=== PATIENT | female | born 1955 | race Caucasian/White ===

== ENCOUNTER 2018-08-09 06:45 | Inpatient (IN) ==
[2018-08-09] MEDS ORDERED: ASPIRIN PO ONE (07:03)
[2018-08-09] MEDS ORDERED: CARDIZEM IV ONE (07:12)
--- NOTE | 2018-08-09 07:33 | PROVIDER DOCUMENTATION ---
HPI-Chest Pain - General Chief Complaint: Epigastric Pain Stated Complaint: CHEST BURNING / PRESSURE / HEART RACING Time Seen by Provider: 08/09/18 07:12 Source: patient Allergies/Adverse Reactions: Patient Allergies Allergy/AdvReac Type Severity Reaction Status Date / Time codeine AdvReac Mild VOMITING Verified 04/11/18 12:08 aspirin AdvReac NAUSEA/VOMI Verified 04/11/18 12:08 TING latex AdvReac ITCHING Verified 04/11/18 12:08 Home Medications: Home Medication List Medication Instructions Recorded Confirmed Last Taken Type Alprazolam [Xanax] 0.5 - 1 mg PO PRN PRN 07/21/13 04/11/18 04/11/18 11:30 History 0.5mg FOSINOpril [Monopril] 20 mg PO DAILY 08/20/17 04/11/18 04/07/18 History Hydrocodone/Acetaminophen [[place] 1 ea PO Q6HR PRN #10 tab 03/30/18 04/11/18 Rx 7.5-325 Tablet] Acyclovir [Zovirax] 800 mg PO PRN PRN 04/10/18 04/11/18 04/04/18 History Famotidine [Pepcid] 40 mg PO HS PRN 04/10/18 04/11/18 04/10/18 History Omeprazole 20 mg PO DAILY 04/11/18 04/11/18 04/07/18 History Hydrocodone/APAP 10 mg/325 mg 1 each PO Q4H PRN PRN tablet 04/13/18 Unknown Rx [[place]-10] Cetirizine [Zyrtec] 10 mg PO DAILY #20 tab 07/15/18 Unknown Rx D-Methorphan/P-Epd/Bpm [Bromfed Dm 5 ml PO Q4H PRN #120 ml 07/15/18 Unknown Rx Liquid] Prednisone 20 mg PO DIRECTED #18 tab 07/15/18 Unknown Rx - History of Present Illness-CP Location: reports: substernal, epigastric Chest Pain Radiation: reports: jaw Quality of Pain: reports: burning, indigestion Severity in ED: moderate Onset/Duration: abrupt, this morning Timing: still present Context/Activities at Onset: reports: none Modifying Factors: improves with: nothing Associated Symptoms: reports: denies symptoms Prior Chest Pain/Cardiac Workup: reports: no prior chest pain, no prior cardiac workup, non-cardiac Similar Symptoms Previously?: No Recently Seen Here or By Another Healthcare Provider: No Review of Systems - Adult - REVIEW OF SYSTEMS - ADULT Constitutional: reports: see HPI. denies: fever Eyes: reports: no symptoms reported Ears, Nose, Mouth & Throat: reports: no symptoms reported Cardiovascular: reports: chest pain, irregular heart rate Respiratory: reports: cough Gastrointestinal: reports: no symptoms reported Genitourinary: reports: no symptoms reported Musculoskeletal: reports: no symptoms reported Integumentary: reports: no symptoms reported Neurological: reports: no symptoms reported Psychiatric: reports: no symptoms reported Endocrine: reports: no symptoms reported Hematologic/Lymphatic: reports: no symptoms reported Allergic/Immunologic: reports: no symptoms reported Past History - Adult - PAST MEDICAL HISTORY-ADULT Review of Records: reports: Nursing Assessment Review, Medications Reviewed Major Childhood Illnesses: reports: denies history Cardiovascular: reports: HTN Respiratory: reports: denies history Gastrointestinal: reports: cholelithiasis, GERD, hepatitis (c) Obstetrical/Gynecological: reports: denies history Genitourinary: reports: denies history Musculoskeletal: reports: chronic pain Neurological: reports: denies history Endocrine/Immune: reports: denies history Other Conditions: reports: denies history Additional History: hep c, tubal ligation - PRIOR SURGERIES/PROCEDURES Surgical/Procedure History: reports: BTL, tonsillectomy, back/neck - IMMUNIZATION STATUS Childhood Immunizations: See Nurse Assessment Flu Vaccine: See Nurse Assessment - FAMILY HISTORY Family History: reviewed, not pertinent Physical Exam-General - PHYSICAL EXAM-ADULT Initial Vital Signs Reviewed: Yes - CONSTITUTIONAL General Appearance: alert - EYES Eyes: PERRL/EOMI - HEAD, EARS, NOSE, MOUTH & THROAT HENMT: normocephalic/atraumatic - NECK Neck: non-tender - RESPIRATORY Respiratory: chest non-tender - CARDIOVASCULAR Cardiovascular: tachycardia, irregularly irregular - GASTROINTESTINAL (ABDOMEN) Abdominal Exam: normal bowel sounds, non tender - LYMPHATIC Lymphatic: no adenopathy - MUSCULOSKELETAL Back Exam: no CVA tenderness, no vertebral tenderness Extremity: no pedal edema, no calf tenderness - SKIN Integumentary: normal color, warm/dry - NEUROLOGIC Neurologic: medical microbiologist II-XII nml as tested, grossly normal, no motor/sensory deficits - PSYCHIATRIC Psych/Mental Status: normal mood/affect Progress - PLAN OF CARE/RESULTS Progress/Plan/Lab Results: Vital Signs - 8 hr 08/09/18 06:56 Temperature 98.4 F Pulse Rate 122 H Respiratory Rate 19 Blood Pressure 151/112 O2 Sat by Pulse Oximetry 99 Laboratory Results - last 24 hr 08/09/18 08/09/18 08/09/18 07:28 07:28 07:28 WBC RBC Hgb Hct MCV MCH MCHC RDW Std Deviation Plt Count MPV Immature Gran % (Auto) Neut % (Auto) Lymph % (Auto) [place] % (Auto) Eos % (Auto) Baso % (Auto) Immature Gran # (Auto) Neut # (Auto) Lymph # (Auto) [place] # (Auto) Eos # (Auto) Baso # (Auto) PT INR PTT (Actin FS) Sodium 141 Potassium 3.6 Chloride 106 Carbon Dioxide 23 L Anion Gap 12 BUN 14 Creatinine 0.4 L Estimated GFR/1.73 m2 > 60 BUN/Creatinine Ratio 35 Glucose 146 H Calculated Osmolality 284 Calcium 9.8 Total Bilirubin 0.50 AST 45 H ALT 65 H Alkaline Phosphatase 136 H Creatine Kinase 55 Troponin T < 0.010 Oid-B-Gflxnpfvdbk Pept 164 Total Protein 7.1 Albumin 3.8 Globulin 3.0 Albumin/Globulin Ratio 1.0 08/09/18 08/09/18 07:28 07:28 WBC 6.77 RBC 4.75 Hgb 13.6 Hct 40.3 MCV 84.8 MCH 28.6 MCHC 33.7 RDW Std Deviation 13.8 Plt Count 118 L MPV 10.7 H Immature Gran % (Auto) 0.1 Neut % (Auto) 58.7 Lymph % (Auto) 29.2 [place] % (Auto) 11.2 H Eos % (Auto) 0.7 Baso % (Auto) 0.1 Immature Gran # (Auto) 0.01 Neut # (Auto) 3.96 Lymph # (Auto) 1.98 [place] # (Auto) 0.76 H Eos # (Auto) 0.05 Baso # (Auto) 0.01 PT 13.0 INR 0.94 PTT (Actin FS) 25.9 Sodium Potassium Chloride Carbon Dioxide Anion Gap BUN Creatinine Estimated GFR/1.73 m2 BUN/Creatinine Ratio Glucose Calculated Osmolality Calcium Total Bilirubin AST ALT Alkaline Phosphatase Creatine Kinase Troponin T Hiv-Z-Fazohzahfph Pept Total Protein Albumin Globulin Albumin/Globulin Ratio Orders Category Date Time Status Cardiac Monitoring DIRECTED Care 08/09/18 07:04 Active Oxygen Therapy- ED Nursing DIRECTED Care 08/09/18 07:04 Active Saline Loc NOW Care 08/09/18 07:04 Active CHEST-2 VIEWS [RAD] Stat Exams 08/09/18 07:04 Completed CBC WITH ELECTRONIC DIFF [HEME] Stat Lab 08/09/18 07:28 Completed CK PROFILE [SP CHEM] Stat Lab 08/09/18 07:28 Completed COMPREHENSIVE METABOLIC PANEL [CHEM] Stat Lab 08/09/18 07:28 Completed PRO B-NATRIURETIC PEPTIDE Stat Lab 08/09/18 07:28 Completed PROTIME WITH INR [COAG] Stat Lab 08/09/18 07:28 Completed PTT [COAG] Stat Lab 08/09/18 07:28 Completed TROPONIN T Stat Lab 08/09/18 07:28 Completed Aspirin Med 08/09/18 07:03 Discontinued 325 mg PO NOW ONE Diltiazem [Cardizem] Med 08/09/18 07:12 Discontinued 20 mg IV NOW ONE Metoprolol [Lopressor] 10 mg Med 08/09/18 08:55 Active 0.9% Sodium Chloride Inj [Ns] 50 ml IV NOW CP/SOB/Palp >45 yrs of Age Stat Oth 08/09/18 07:03 Ordered EKG [EKG] Stat Ther 08/09/18 07:04 Draft Result Diagrams: 08/09/18 07:28 08/09/18 07:28 - CONSULTS/PCP/HOSPITALIST Notification #1 *Consult/PCP/Hospitalist*: juno Time Discussed: 09:02 Reason/Comments: he was out of town, hospitalist will admit his patient Departure - Departure Date of Disposition Decision: 08/09/18 Time of Disposition Decision: 09:02 DIAGNOSIS: A-fib, Tachycardia Disposition: ADMITTED INPATIENT 09 Certified Medical Emergency: Emergent Condition: Good Referrals and Follow-Ups: Edd pSence MD [Primary Care Provider] - - Critical Care Note This patient required my direct & personal management of CC.: No Attestation - Physician/ MARY Attestation Patient care was provided by Advanced Practice Provider:: No The physician spent face to face time with patient:: Yes Advanced Practice Provider documentation review:: Supervising physician onsite and consulted in the evaluation and care of this patient. The physician did have a face to face encounter with the patient.
--- NOTE | 2018-08-09 07:37 | EKG Report ---
Test Performed on : 08/09/2018 07:06:55 AM Test Reason : cp Blood Pressure : / mmHG Vent. Rate : 117 BPM Atrial Rate : 088 BPM P-R Int : 000 ms QRS Dur : 074 ms QT Int : 326 ms P-R-T Axes : 000 029 095 degrees QTc Int : 454 ms Atrial fibrillation. with rapid ventricular response. Septal infarct , age undetermined Abnormal ECG When compared with ECG of 10-APR-2018 13:46, Atrial fibrillation. has replaced Sinus rhythm. Septal infarct is now present Nonspecific T wave abnormality now evident in Lateral leads Unconfirmed Result
[2018-08-09 07:45] LABS: BASO# 0.01 X1000 (0.0-0.2); BASO% 0.1 % (0.0-0.8); EOS# 0.05 X1000 (0.0-0.7); EOS% 0.7 % (0.0-10.0); HEMATOCRIT 40.3 % (37.0-47.0); HEMOGLOBIN 13.6 g/dL (12.0-16.0); IMM GRAN# 0.01 X1000 (0.0-0.04); IMM GRAN% 0.1 % (0.0-0.5); LYMPH# 1.98 X1000 (1.2-3.4); LYMPH% 29.2 % (20.5-51.1); MCH 28.6 PG (27-31); MCHC 33.7 g/dL (33-37); MCV 84.8 FL (81-99); MONO# 0.76 X1000 (0.11-0.59); MONO% 11.2 % (1.7-9.3); MPV 10.7 FL (7.4-10.4); NEUT# 3.96 X1000 (1.4-6.5); NEUT% 58.7 % (42.2-75.2); PLT 118 X1000 (130-400); RBC 4.75 XMIL (4.2-5.4); RDW 13.8 % (11.5-14.5); WBC 6.77 X1000 (4.8-10.8)
[2018-08-09 08:00] LABS: INR 0.94
[2018-08-09 08:01] LABS: PTT 25.9 Seconds (22.3-41.8)
--- NOTE | 2018-08-09 08:03 | Diag Imaging Result Doc PS360 ---
EXAM: CHEST-2 VIEWS HISTORY: heart racing TECHNIQUE: Chest two views COMPARISON: 03/17/2016 FINDINGS: The lungs are well expanded. The heart is not enlarged. The vessels are not distended. There are no infiltrates. No pleural effusions. There is a granuloma in the mid right lung. IMPRESSION: No acute abnormality. Electronically signed by Chucho Quarles 08/09/2018 8:01 AM
[2018-08-09 08:08] LABS: AGAP 12; ALBUMIN 3.8 g/dL (3.5-5.0); ALKALINE PHOSPHATASE 136 U/L (32-104); BUN 14 mg/dL (8-22); CALCIUM 9.8 mg/dL (8.8-10.2); CHLORIDE 106 mmol/L (98-107); CK PROFILE 55 U/L (24-173); COSMO 284; CREATININE 0.4 mg/dL (0.5-0.9); ESTIMATED GFR > 60; GLUCOSE 146 mg/dL (70-104); GOT 45 U/L (10-30); GPT 65 U/L (10-36); POTASSIUM 3.6 mmol/L (3.5-5.1); SODIUM 141 mmol/L (136-145); TCO2 23 mmol/L (25-35); TOTAL PROTEIN 7.1 g/dL (6.3-8.3)
[2018-08-09] MEDS ORDERED: LOPRESSOR 10 MG in NS 50 ML IV ONE (08:55)
--- NOTE | 2018-08-09 09:15 | ED EKG INTERP ---
This chart was entered by Marli Patton Scribe, acting as scribe for Yessica Naranjo MD. EKG Interpretation - EKG Time of EKG reading by physician:: 07:06 EKG Read and Signed by:: Yessica Naranjo EKG Interpretation (*Must complete 3 of following elements*): Abnormal Rate: 117 Rhythm: atrial fibrillation with rvr [place]: normal QRS: normal VA Interval: normal ST Wave: normal Comments: septal infarct, age undetermned Attestation - Physician/ MARY Attestation Patient care was provided by Advanced Practice Provider:: No The physician spent face to face time with patient:: Yes Advanced Practice Provider documentation review:: Supervising physician onsite and consulted in the evaluation and care of this patient. The physician did have a face to face encounter with the patient. This chart was documented by the indicated scribe, (Marli Patton Scribe) and accurately reflects the services I performed and decisions made by me, Yessica Naranjo MD, as attested by the provider's signature.
[2018-08-09] MEDS ORDERED: NS 50 ML ONE (09:59)
[2018-08-09] MEDS ORDERED: ZOFRAN IV PRN (12:25)
--- NOTE | 2018-08-09 13:03 | HISTORY AND PHYSICAL ---
CHIEF COMPLAINT: Shortness of breath, chest tightness, tachycardia. HISTORY OF PRESENT ILLNESS: This is a 62-year-old female with a history of asthma, hepatitis C, and hypertension. She presented to the emergency room complaining of chest tightness with a burning-type feeling and her heart racing. She states this came on as a sudden onset. She has never felt this before. She did state that she was very weak during this time and that she could not stand up. She thought she was going to pass out. She does state that she has had an upper respiratory infection for about 5 weeks and in fact, she was in the emergency room on July 15 and at that time she was diagnosed with an upper respiratory infection. She was discharged on prednisone taper, Zyrtec, Bromfed DM. She states that symptoms have persisted, although they did get somewhat better. But during these last 3 weeks she has had episodes of feeling like she was choking and chest fullness, although she did not notice her heart rate up at that time. PAST MEDICAL HISTORY: 1. Hepatitis C with no treatment. 2. Cirrhosis of the liver. 3. History of elevated liver function tests. 4. Hypertension. 5. Asthma. PAST SURGICAL HISTORY: Laparoscopic cholecystectomy in 2018 with subsequent ERCP. SOCIAL HISTORY: She denies alcohol, tobacco, or illicit drug use. ALLERGIES: Codeine which causes vomiting. Aspirin causes nausea and vomiting. Latex, itching. HOME MEDICATIONS: A list will be obtained by the nursing staff and once reviewed we will restart as is appropriate. REVIEW OF SYSTEMS: Discussed with patient with pertinent positives stated in the HPI. She denied any syncope or dizziness, a productive cough, any prior chest pain or palpitations, any nausea, vomiting, diarrhea, constipation, black or bloody vomitus or stool, hematuria, dysuria, frequency, urgency. PHYSICAL EXAMINATION: GENERAL: This is a 62-year-old female who is lying flat in the bed in the room, in no distress. VITAL SIGNS: Blood pressure is 110/81 with a heart rate of ranging from 80-101, respirations are 19. EYES: Pupils are equal, round, react to light. EOMs are intact. Sclerae are anicteric. HENT: Head is normocephalic, atraumatic. Mucous membranes are moist. NECK: Supple with trachea midline. CARDIAC: Irregularly irregular rate and rhythm. She has no lower extremity edema with peripheral pulses palpable x4 extremities. PULMONARY: Breath sounds are clear, but diminished at the bases. She has no increased work of breathing noted. Chest rises and falls symmetrically with respiration. GASTROINTESTINAL: Abdomen is soft, nontender, nondistended. Bowel sounds in all 4 quadrants. GENITOURINARY: She has no CVAT nor suprapubic tenderness. NEUROLOGIC: She is alert and oriented x3. SKIN: Warm and dry. LABS: WBC is 6.7, with a hemoglobin of 13.6, hematocrit 40.3, platelets of 118,000. INR 0.94. Sodium is 141, potassium 3.6, creatinine 0.4, with a BUN of 14, glucose is 146. AST is 45, ALT 65, and alkaline phosphatase is 136. Chest x-ray reveals no acute abnormality. There are no infiltrates. No pleural infusion. There is a granuloma in the mid right lung. Lungs are well expanded. Heart is not enlarged. Vessels are not distended. ASSESSMENT AND PLAN: 1. New onset atrial fibrillation with rapid ventricular response. The patient will be admitted and she will be placed on telemetry. At present rate is controlled. If she has another episode of RVR, she will be moved to ICU and placed on a Cardizem drip. We will check a TSH and get an echocardiogram. We will start Lovenox 1 mg/kg as the patient's description states that she may have actually been in this for the last 2 to 3 weeks. 2. Shortness of breath. [facility] and diagnosed subjectively with pneumonia. Lungs are clear at this time. We will start antibiotic. We will give supplemental oxygen. 3. Recent diagnosis of pneumonia. She was diagnosed in the last 2 to 3 days. Will get blood cultures and start antibiotic coverage of Rocephin and Zithromax. 4. History of asthma. We will get peak flows daily. She is on no medications for this. 5. Hypertension. We will identify her home medications and continue these, although she does state that she has had a persistent cough for the last 6 to 8 weeks. If she is on an Juma we will hold that and we will. 6. Persistent nonproductive cough. As stated above, we will hold her JUMA inhibitor. 7. History of hepatitis C without treatment. Aware. 8. History of cirrhosis with persistent elevated liver function tests. We are aware and the patient is followed by Dr. Pope. 9. For deep vein thrombosis prophylaxis, as stated above, we will use Lovenox and for gastrointestinal prophylaxis we will use omeprazole. Further treatments pending hospital course. Dictated by ZACH Vargas for Jem Giron MD This chart was documented by, ZACH Vargas and accurately reflects the services performed, treatment plan and medical decisions as attested by the providers signature Jem Giron MD. cc: ZACH Vargas MD
[2018-08-09] MEDS: ZITHROMAX PO SCH (14:33)
[2018-08-09] MEDS: ROCEPHIN 1 GM in NS 50 ML IV SCH (14:33)
[2018-08-09] MEDS: CARDIZEM PO SCH ×3 (14:34→21:13)
[2018-08-09] MEDS ORDERED: NORCO-5 PO ONE (15:06)
--- NOTE | 2018-08-09 15:47 | CARDIOLOGY CONSULTATION ---
DATE: 08/09/2018 INDICATION: Cardiology was consulted for atrial fibrillation HISTORY OF PRESENT ILLNESS: A 62-year-old lady with history of asthma, hepatitis C, history of hypertension. Has been having cough without any expectoration intermittently, was treated with antibiotics so this has been going on for 2 to 3 weeks. Before she came to the emergency room. She noticed some palpitations. She was here in June, had been diagnosed with upper respiratory tract infection and was discharged on prednisone taper Zyrtec and Bromfed. She does not complain of any dizziness or syncope. She complains of having cough and with cough she had some chest tightness as well. She has had hepatitis C, has cirrhosis of the liver and she also states that she has a mass in the stomach. The exact etiology she does not know and further investigation was recommended. PAST MEDICAL HISTORY: 1. Hepatitis C. 2. Cirrhosis liver. 3. Per patient, has a mass in her stomach, unknown etiology. Further workup recommended. 4. Laparoscopic cholecystectomy with subsequent ERCP in March 2019. 5. History of hypertension, asthma. ALLERGIES: She is allergic to codeine. Aspirin causes nausea and vomiting. Latex causes itching. She denies alcohol abuse. REVIEW OF SYSTEMS: Gastrointestinal: There is no nausea, vomiting or diarrhea. There is no hematemesis or melena. Central Nervous System: No focal weakness to suggest a CVA or TIA. Genitourinary: There is no dysuria or hematuria. PHYSICAL EXAMINATION: Vital Signs: Blood pressure was 110/80. Cardiovascular System: Normal jugular venous pressure. There is no thyromegaly. There is no carotid bruit. First and second heart sounds were heard. There was no S3 gallop. Respiratory: Normal air entry. There are no crepitations or rhonchi. Abdomen: Soft, nontender. There was no guarding or rigidity. Bowel sounds were heard. Central Nervous System: Alert, was moving all 4 extremities. Extremities: Examination of extremities revealed no pedal edema. DIAGNOSTICS: Electrocardiogram revealed atrial fibrillation. LABORATORY: Hemoglobin 13.6, hematocrit 34, platelet count off 118. Sodium 141, potassium 3.6, BUN 14 creatinine 0.4. Abnormal liver function test. Cardiac enzymes were negative. TSH was normal. CURRENT MEDICATIONS: Include: 1. Cardizem 30 mg q.6 hours. 2. Prilosec 40. 3. Zofran as needed. 4. Ceftriaxone. 5. Zithromax. ASSESSMENT AND PLAN: 1. Ms. Su Carbajal is a 62-year-old, lady who has history of cirrhosis, undergone laparoscopic cholecystectomy with ERCP, hepatitis C positive. Has had recurrent respiratory tract infection. Comes in with having increasing palpitations and feeling uneasy in the chest. She was noted to be in atrial fibrillation with this new onset. Currently, she is on p.o. Cardizem. As far as medications are concerned, would recommend changing her to once a day long-acting Cardizem from tomorrow. 2. We will get an echocardiogram to assess cardiac and valvular function. 3. As far as further treatment anticoagulation is concerned, she says that she is also noted to have a mass in her stomach in addition to the above GI issues and she will make a followup appointment to see Gastroenterology for further workup of the stomach mass. Given this and given the platelets being slightly lower, I have not put her on any anticoagulation therapy. Would recommend an aspirin currently at the present time. 4. Respiratory tract infection. Is probably what has triggered her atrial fibrillation. She has been started on ceftriaxone and Zithromax. I have not made any other changes. cc: Carmine Davis MD
--- NOTE | 2018-08-09 19:24 | ECHO REPORT ---
ORDER DATE: 08/09/2018 INDICATION: A 62-year-old female with atrial fibrillation and chest pain. M-MODE MEASUREMENTS: Left ventricle end diastole: 3.3. Left ventricle end systole: 1.8. Posterior wall: 1.0. Interventricular septum: 1.1. Left atrium: 3.2. Aortic root: 2.6. SUMMARY OF 2-DIMENSIONAL IMAGIN. Left ventricular function is normal. Ejection fraction estimated at 65% to 70%. The patient is in atrial fibrillation. 2. The mitral valve shows a very mild degree of regurgitation. 3. Pulsed wave Doppler of mitral inflow shows single filling wave. 4. The aortic valve has 3 cusps. They open normally. Color flow mapping unremarkable. 5. The pulmonic valve shows a mild degree of regurgitation. 6. The tricuspid valve shows a mild degree of regurgitation. 7. The left atrium appears to be mildly enlarged. 8. The inferior vena cava is not dilated. 9. There is no pericardial effusion. No masses, no thrombus. Clinical correlation recommended. cc: MD Sade Lemons CRNP
--- NOTE | 2018-08-09 20:30 | Diag Imaging Result Doc PS360 ---
CT ABD/PELVIS W/PO AND IV CON - 08/09/2018 INDICATION: gastric mass COMPARISON: 01/13/2018 FINDINGS: The lung bases are clear and the heart size is normal. The liver is severely atrophic with a nodular contour compatible with advanced cirrhosis. This is stable from prior. There are cholecystectomy clips. Normal spleen size. The pancreas, adrenals, and kidneys are normal. No visible gastric mass. No bowel obstruction or inflammation. Normal appendix. There are several fibroids in the uterus, there is also a new uterine mass on the left side. This measures about 5 cm. Urinary bladder and rectum are normal. Bones are intact. IMPRESSION: 1. New uterine mass most likely another fibroid. 2. Advanced cirrhosis. 3. No gastric mass. This exam was performed using automated exposure control, adjustment of mA or kV according to patient size, and/or use of iterative reconstruction technique Electronically signed by Maico Lutz 08/09/2018 8:27 PM
[2018-08-10] MEDS: CARDIZEM PO SCH ×4 (02:33→21:19)
[2018-08-10] MEDS: PRILOSEC PO SCH (06:21)
[2018-08-10 07:05] LABS: HEMATOCRIT 41.2 % (37.0-47.0); HEMOGLOBIN 13.5 g/dL (12.0-16.0); MCHC 32.8 g/dL (33-37); MCV 85.5 FL (81-99); MPV 10.7 FL (7.4-10.4); RBC 4.82 XMIL (4.2-5.4); RDW 14.4 % (11.5-14.5); WBC 5.45 X1000 (4.8-10.8)
[2018-08-10 07:20] LABS: AGAP 10; ALBUMIN 3.2 g/dL (3.5-5.0); ALKALINE PHOSPHATASE 103 U/L (32-104); BUN 15 mg/dL (8-22); CALCIUM 8.7 mg/dL (8.8-10.2); CHLORIDE 105 mmol/L (98-107); COSMO 281; CREATININE 0.4 mg/dL (0.5-0.9); ESTIMATED GFR > 60; GLUCOSE 114 mg/dL (70-104); GOT 48 U/L (10-30); GPT 57 U/L (10-36); POTASSIUM 3.7 mmol/L (3.5-5.1); SODIUM 140 mmol/L (136-145); TCO2 25 mmol/L (25-35); TOTAL PROTEIN 6.4 g/dL (6.3-8.3)
[2018-08-10] MEDS: ZITHROMAX PO SCH (10:36)
[2018-08-10] MEDS: ROCEPHIN 1 GM in NS 50 ML IV SCH (14:01)
--- NOTE | 2018-08-10 16:57 | PROGRESS NOTE ---
DATE: 08/10/2018 SUBJECTIVE: Patient reports no longer having sensation of palpitations or the sensation that her heart is racing. Denies any chest pain or fever. OBJECTIVE: Vital Signs: Temperature 97.7 degrees, heart rate 93, respiratory rate 18, blood pressure 114/79 and O2 saturation 99% on room air. General: This is a 62-year-old female lying in bed in no acute distress. Cardiovascular: S1, S2 heard. Irregularly irregular. Tachycardic. No murmurs, gallops, or rubs. Respiratory: Decreased breath sounds globally, but there is no wheezing or crackles noted. The patient is not using any accessory muscles or having work of breathing. Abdomen: Soft. Nontender to palpation. Bowel sounds present. No organomegaly. Extremities: No clubbing cyanosis, or edema. Peripheral pulses present in both legs. Neurological: Patient alert and oriented x3. Moves all 4 extremities. LABORATORY DATA: CBC is normal. BMP is completely normal with mild elevation of transaminases. Platelets are normal at 133. ASSESSMENT AND PLAN: 1. New onset atrial fibrillation with rapid ventricular response. Patient was admitted for this condition. She was started initially, it was documented atrial fibrillation with rapid ventricular rate, but when this patient was sent to the floor, heart rate was back to normal. The patient has been started on Cardizem 30 mg p.o. q.6 hours but the last doses have been held because apparently heart rate has not reached 61 as per nursing notes. That is why we have not started this patient on Cardizem long-acting. I think tomorrow we will be able to start Cardizem CD 120 mg p.o. daily. Regarding anticoagulation, there was a concern from Cardiology regarding a gastric mass so I proceeded to order a CT of abdomen and pelvis. We did not show any gastric mass, and showed only advanced cirrhosis that we were aware of. Also another fibroid in the ureters. Also, platelets are normal. I am not quite sure if that was truly low platelet count or was an artifact, but in any case the platelets are 133 today. I will leave the decision to anticoagulate this patient to Dr. Davis. Also, I will leave to him to decide to do a transesophageal echo with cardioversion considering that this patient is the first time that he had this episode of atrial fibrillation. We will continue to monitor this patient closely. 2. Right lower lobe pneumonia. Patient is receiving Zithromax and ceftriaxone for that condition. We will continue with the same management. The patient is not developing any fever, and white cell count is completely normal. We will continue to monitor. 3. Bronchial asthma. The patient is not having any exacerbation. We will provide breathing treatments as needed only. 4. Hypertension. Blood pressure is under control. We will continue with the same management. 5. History of hepatitis C not on any treatment and is being followed by Dr. Pope. 6. Liver cirrhosis secondary to hepatitis C infection. The patient has been seen by Dr. Pope from . At this point, that condition is stable. 7. Disposition. At this point, the heart rate is well controlled. We will see if finally Cardiology decides to proceed with OCTAVIO cardioversion, or decide to just control heart rate or not. We will follow recommendations. cc: Jem Giron MD
[2018-08-10] MEDS ORDERED: NORCO-10 PO PRN (22:07)
[2018-08-11] MEDS: CARDIZEM PO SCH ×2 (02:05→08:44)
[2018-08-11] MEDS: PRILOSEC PO SCH (06:17)
[2018-08-11 06:57] LABS: HEMATOCRIT 39.5 % (37.0-47.0); MCH 28.3 PG (27-31); MCHC 32.9 g/dL (33-37); MCV 85.9 FL (81-99); MPV 10.4 FL (7.4-10.4); RBC 4.6 XMIL (4.2-5.4); RDW 14.2 % (11.5-14.5); WBC 4.61 X1000 (4.8-10.8)
[2018-08-11 07:11] LABS: AGAP 9; ALBUMIN 3.2 g/dL (3.5-5.0); ALKALINE PHOSPHATASE 107 U/L (32-104); BUN 14 mg/dL (8-22); CALCIUM 8.7 mg/dL (8.8-10.2); CHLORIDE 107 mmol/L (98-107); COSMO 283; CREATININE 0.3 mg/dL (0.5-0.9); ESTIMATED GFR > 60; GLUCOSE 114 mg/dL (70-104); GOT 48 U/L (10-30); GPT 55 U/L (10-36); POTASSIUM 3.6 mmol/L (3.5-5.1); SODIUM 141 mmol/L (136-145); TCO2 25 mmol/L (25-35); TOTAL PROTEIN 6.1 g/dL (6.3-8.3)
[2018-08-11 08:11] VITALS: BP 125/76
[2018-08-11] MEDS: ZITHROMAX PO SCH (08:44)
[2018-08-11] MEDS ORDERED: CARDIZEM CD PO SCH (10:00)
[2018-08-11] MEDS ORDERED: ELIQUIS PO SCH (10:00)
--- NOTE | 2018-08-11 10:26 | EKG Report ---
Test Performed on : 08/11/2018 10:07:53 AM Test Reason : A-FIB Blood Pressure : / mmHG Vent. Rate : 066 BPM Atrial Rate : 066 BPM P-R Int : 178 ms QRS Dur : 084 ms QT Int : 408 ms P-R-T Axes : 042 058 062 degrees QTc Int : 427 ms Normal sinus rhythm. Possible Left atrial enlargement Borderline ECG When compared with ECG of 09-AUG-2018 07:06, (Unconfirmed) Sinus rhythm. has replaced Atrial fibrillation. Vent. rate has decreased BY 51 BPM Criteria for Septal infarct are no longer present Nonspecific T wave abnormality no longer evident in Lateral leads Unconfirmed Result
--- NOTE | 2018-08-11 17:39 | DISCHARGE SUMMARY ---
ADMISSION DATE: 08/09/2018 DISCHARGE DATE: 08/11/2018 DISCHARGE DIAGNOSES: 1. New onset paroxysmal atrial fibrillation with rapid ventricular response that has now converted to sinus rhythm. 2. Hypertension. 3. History of asthma that has been stable. 4. Hepatitis C cirrhosis. HOSPITAL COURSE: Ms. Carbajal is a 62-year-old patient who was admitted to the hospital after presenting to the emergency department with chest tightness and racing heartbeat. She was diagnosed as having atrial fibrillation with a rapid ventricular rate after which she was admitted to the hospital for further care. She has received IV Diltiazem and was kept in the ICU after which her heart rate was controlled. Since yesterday, she has converted to sinus rhythm while being on oral diltiazem. She is feeling better and denies having any complaints this morning. Her blood pressure has also been stable. There was a question about recent diagnosis of pneumonia, but her chest x-ray has been negative for any infiltrates. She is also diagnosed as having hepatitis C cirrhosis and is being followed with Mack Pope MD. The patient shares that her hepatitis C medication has been approved, and she is to follow up with Dr. Pope who is going to start her on hepatitis C treatment. As mentioned above, the patient feels better, and her atrial fibrillation has converted to sinus rhythm. She will be started on Eliquis 5 mg orally twice daily for thromboembolism prophylaxis. There was a question about gastric mass, but that has been ruled out with CT scan of the abdomen and pelvis. DISCHARGE MEDICATIONS: 1. Eliquis 5 mg orally twice daily. 2. Diltiazem CD 120 mg orally, once daily. 3. Hydrocodone 10 mg every 4 hours as needed for chronic pain. 4. Omeprazole 20 mg orally once daily. 5. Famotidine 40 mg once daily. 6. Cetirizine 10 mg orally once daily. 7. Benzoate 200 mg orally t.i.d. as needed for cough. 8. Acyclovir 800 mg orally as needed for herpetic flare ups. FOLLOW UP: She will follow up with Dr. Spence in approximately one to two weeks. She will also follow up with Dr. Davis in approximately two weeks. She will follow up with Dr. Pope in several weeks for hep C treatment. CONDITION: Stable. DISPOSITION: Home. cc: MD Edd Ortiz MD Khurshid Yousuf, MD Ashish K. Basu, MD MTDD
== END 2018-08-11 12:16 | disposition home or self-care (01) | DRG 308 ==
LOC: P.ED 06:45 → P.MEDSURG 10:12 → SUATTDRO 10:12
PROVIDERS: ATTEND Internal Medicine
CPT/HCPCS: 71020; 71046; 74177; 80053; 82550; 83880; 84443; 84484; 85025; 85027; 85610; 85730; 93005; 93306; 96365; 96375; 99285; A9270; J0696; Q9967